=== PATIENT | male | born 1985 | race Caucasian/White ===

== ENCOUNTER 2017-02-07 03:28 | Emergency (ER) | payer SELFPAY ==
[~2017-02-07] VITALS: Ht 185.4 cm; Wt 84.1 kg
[2017-02-07 03:31] VITALS: BP 135/94
== END 2017-02-07 06:40 | disposition left against medical advice (07) ==
LOC: EMS 03:31
DX: R51 Headache (principal); J45.909 Unspecified asthma, uncomplicated; F17.210 Nicotine dependence, cigarettes, uncomplicated; Z53.21 Procedure and treatment not carried out due to patient leaving prior to being seen by health care provider